=== PATIENT | male | born 1990 | race Caucasian/White ===

== ENCOUNTER 2018-03-31 18:07 | Emergency (ER) | payer OTHER ==
[2018-03-31] MEDS: ONDANSETRON 4 MG INJ IV ×2 (18:57→19:51)
[2018-03-31 19:21] LABS: ADD MAN DIFF? NO
[2018-03-31 19:23] LABS: BASOPHILS % 0.4 % (0.0-2.0); EOSINOPHILS % 0.2 % (0.0-7.0); HEMATOCRIT 37.7 % (42.0-52.0); HEMOGLOBIN 12.9 g/dl (14.0-18.0); LYMPHOCYTES # 2.3 10^3/ul (0.8-2.9); LYMPHOCYTES % 28.2 % (15.0-51.0); MEAN CORPUSCULAR HEMOGLOBIN 30.8 pg (29.0-33.0); MEAN CORPUSCULAR HGB CONC 34.2 g/dl (32.0-37.0); MEAN PLATELET VOLUME 10.7 fl (7.4-10.4); MONOCYTE # 0.4 10^3/ul (0.3-0.9); MONOCYTES % 5.3 % (0.0-11.0); NEUTROPHIL # 5.4 10^3/ul (1.6-7.5); NEUTROPHILS % 65.7 % (39.0-77.0); PLATELET COUNT 344 10^3/UL (140-415); POSITIVE DIFF @See below; RED BLOOD COUNT 4.19 10^6/ul (4.70-6.10); RED CELL DISTRIBUTION WIDTH 13.5 % (11.5-14.5)
[2018-03-31 19:23] LABS: WHITE BLOOD COUNT 8.2 10^3/ul (4.8-10.8)
[2018-03-31 19:47] LABS: ALANINE AMINOTRANSFERASE 34 IU/L (13-69); ALBUMIN 5.1 g/dl (3.3-4.9); ALBUMIN/GLOBULIN RATIO 1.45; ALKALINE PHOSPHATASE 126 IU/L (42-121); ANION GAP 15 (5-13); ASPARTATE AMINO TRANSFERASE 30 IU/L (15-46); BILIRUBIN,INDIRECT 0.8 mg/dl (0-1.1); BILIRUBIN,TOTAL 0.8 mg/dl (0.2-1.3); BLOOD UREA NITROGEN 24 mg/dl (7-20); CALCIUM 10.4 mg/dl (8.4-10.2); CARBON DIOXIDE 24 mmol/L (21-31); CHLORIDE 99 mmol/L (97-110); CREATININE 0.63 mg/dl (0.61-1.24); Estimated GFR > 60 mL/min (>60); GLUCOSE 395 mg/dl (70-220); LIPASE 34 U/L (23-300); POTASSIUM 4.3 mmol/L (3.5-5.1); SODIUM 138 mmol/L (135-144); TOTAL PROTEIN 8.6 g/dl (6.1-8.1)
[2018-03-31] MEDS: morphine 4 MG/ML VIAL IV (19:51)
[2018-03-31] MEDS: SOD CHLORIDE 0.9% 1,000 ML IV (19:51)
[2018-03-31 19:55] LABS: ADD MAN DIFF? NO; BASOPHILS % 0.2 % (0.0-2.0); EOSINOPHILS % 0.1 % (0.0-7.0); HEMATOCRIT 35.8 % (42.0-52.0); HEMOGLOBIN 12.3 g/dl (14.0-18.0); LYMPHOCYTES # 2.4 10^3/ul (0.8-2.9); LYMPHOCYTES % 28.7 % (15.0-51.0); MEAN CORPUSCULAR HEMOGLOBIN 31.1 pg (29.0-33.0); MEAN CORPUSCULAR HGB CONC 34.4 g/dl (32.0-37.0); MEAN CORPUSCULAR VOLUME 90.4 fl (82.0-101.0); MEAN PLATELET VOLUME 10.1 fl (7.4-10.4); MONOCYTE # 0.4 10^3/ul (0.3-0.9); MONOCYTES % 5.3 % (0.0-11.0); NEUTROPHIL # 5.4 10^3/ul (1.6-7.5); NEUTROPHILS % 65.5 % (39.0-77.0); PLATELET COUNT 370 10^3/UL (140-415); RED BLOOD COUNT 3.96 10^6/ul (4.70-6.10); RED CELL DISTRIBUTION WIDTH 13.3 % (11.5-14.5)
[2018-03-31 19:55] LABS: WHITE BLOOD COUNT 8.2 10^3/ul (4.8-10.8)
[2018-03-31] MEDS: ACETAMINOPHEN 325 MG TAB PO (22:16)
== END 2018-03-31 22:29 | disposition home or self-care (01) ==
LOC: E/R 22:29
DX: N50.811 Right testicular pain (principal); N43.3 Hydrocele, unspecified; F17.210 Nicotine dependence, cigarettes, uncomplicated; J45.909 Unspecified asthma, uncomplicated; E11.9 Type 2 diabetes mellitus without complications; I10 Essential (primary) hypertension; F12.10 Cannabis abuse, uncomplicated; Z71.6 Tobacco abuse counseling; Z79.4 Long term (current) use of insulin; Z85.47 Personal history of malignant neoplasm of testis
CPT/HCPCS: 36415; 76870; 80053; 82962; 83690; 85025; 96374; 96375; 99285-25

== ENCOUNTER 2018-08-19 08:39 | Day surgery (SDC) | payer OTHER ==
[~2018-08-19 08:39] MED LIST: LIDOCAINE 2% (SDV) 5 ML INJ; SEVOFLURANE 15 MIN
[2018-08-19] MEDS ORDERED: BUPIVACAINE 0.5% (SDV) 30 ML INJ ×2 (09:56→10:19)
[2018-08-19 10:15] LABS: ADD MAN DIFF? NO
[2018-08-19 10:18] LABS: WHITE BLOOD COUNT 8.9 10^3/ul (4.8-10.8)
[2018-08-19 10:18] LABS: BASOPHILS % 0.3 % (0.0-2.0); EOSINOPHILS # 0.1 10^3/ul (0.0-0.5); EOSINOPHILS % 1.6 % (0.0-7.0); HEMATOCRIT 41.9 % (42.0-52.0); HEMOGLOBIN 13.8 g/dl (14.0-18.0); LYMPHOCYTES # 1.9 10^3/ul (0.8-2.9); MEAN CORPUSCULAR HEMOGLOBIN 31.4 pg (29.0-33.0); MEAN CORPUSCULAR HGB CONC 32.9 g/dl (32.0-37.0); MEAN CORPUSCULAR VOLUME 95.4 fl (82.0-101.0); MEAN PLATELET VOLUME 11.1 fl (7.4-10.4); MONOCYTE # 0.5 10^3/ul (0.3-0.9); MONOCYTES % 5.5 % (0.0-11.0); NEUTROPHIL # 6.3 10^3/ul (1.6-7.5); NEUTROPHILS % 71.3 % (39.0-77.0); PLATELET COUNT 294 10^3/UL (140-415); RED BLOOD COUNT 4.39 10^6/ul (4.70-6.10); RED CELL DISTRIBUTION WIDTH 12.6 % (11.5-14.5)
[2018-08-19] MEDS ORDERED: INSULIN ASPART [NOVOLOG] 3 ML PEN IV (10:30)
[2018-08-19] MEDS ORDERED: ACCU-CHEK XX (10:30)
[2018-08-19 10:36] LABS: ALANINE AMINOTRANSFERASE 13 IU/L (13-69); ALBUMIN 4.2 g/dl (3.3-4.9); ALKALINE PHOSPHATASE 166 IU/L (42-121); ANION GAP 7 (5-13); ASPARTATE AMINO TRANSFERASE 17 IU/L (15-46); BILIRUBIN,INDIRECT 0.2 mg/dl (0-1.1); BILIRUBIN,TOTAL 0.2 mg/dl (0.2-1.3); BLOOD UREA NITROGEN 12 mg/dl (7-20); CALCIUM 9.5 mg/dl (8.4-10.2); CARBON DIOXIDE 27 mmol/L (21-31); CHLORIDE 105 mmol/L (97-110); Estimated GFR > 60 mL/min (>60); GLUCOSE 223 mg/dl (70-220); POTASSIUM 4.7 mmol/L (3.5-5.1); SODIUM 139 mmol/L (135-144)
[2018-08-19 10:37] LABS: CREATININE 0.49 mg/dl (0.61-1.24)
[2018-08-19] MEDS: INSULIN ASPART [NOVOLOG] 3 ML PEN SC (10:39)
[2018-08-19 10:49] LABS: INR 0.88; PT RATIO 0.9
[2018-08-19 10:50] LABS: PARTIAL THROMBOPLASTIN TIME 27.6 Sec (23.0-35.0)
[2018-08-19] MEDS ORDERED: PROPOFOL 20 ML (11:01)
[2018-08-19] MEDS ORDERED: ROCURONIUM 50 MG INJ (11:04)
[2018-08-19] MEDS ORDERED: CEFAZOLIN 1 GM INJ (11:58)
[2018-08-19] MEDS: BUPIVACAINE 0.5% 30 ML VIAL INJ (12:35)
[2018-08-19] MEDS ORDERED: MEPERIDINE 25 MG INJ IV (13:00)
[2018-08-19] MEDS ORDERED: ALBUTEROL 0.083% (NEB) 2.5 MG/3 ML AMP HHN (13:00)
[2018-08-19] MEDS ORDERED: HYDROmorphONE 1 MG/5 ML IV SYRINGE IV ×2 (13:00)
[2018-08-19] MEDS ORDERED: EPHEDrine SULFATE 50 MG/5 ML SYG IV (13:00)
[2018-08-19] MEDS ORDERED: FENTAnyl 50 MCG/ML VIAL IV ×3 (13:00)
[2018-08-19] MEDS ORDERED: DIPHENHYDRAMINE 50 MG INJ IV (13:00)
[2018-08-19] MEDS ORDERED: METOCLOPRAMIDE 10 MG INJ IV (13:00)
[2018-08-19] MEDS ORDERED: hydrALAzine 20 MG INJ IV (13:00)
[2018-08-19] MEDS ORDERED: LABETALOL HCL 20MG INJ IV (13:00)
[2018-08-19] MEDS: HYDROmorphONE 1 MG/5 ML IV SYRINGE IV (13:04)
[2018-08-19] MEDS: ONDANSETRON 4 MG INJ IV (13:05)
[2018-08-19] MEDS: KETOROLAC 30 MG INJ IV (13:46)
== END 2018-08-19 14:17 | disposition home or self-care (01) ==
LOC: SDS 08:39
DX: S62.616A Displaced fracture of proximal phalanx of right little finger, initial encounter for closed fracture (principal); V00.131A Fall from skateboard, initial encounter; Y93.51 Activity, roller skating (inline) and skateboarding; I10 Essential (primary) hypertension; E11.9 Type 2 diabetes mellitus without complications; J45.909 Unspecified asthma, uncomplicated
CPT/HCPCS: 26746; 71045; 73130-RT; 80053; 82962; 85025; 85610; 85730; 93005

== ENCOUNTER 2018-09-16 06:32 | Inpatient (IN) | payer OTHER ==
[2018-09-16] MEDS ORDERED: ONDANSETRON 4 MG INJ IV (07:30)
[2018-09-16] MEDS ORDERED: DOCUSATE SODIUM 100 MG CAP PO (07:30)
[2018-09-16] MEDS ORDERED: VANCOMYCIN IV PER PHARMACY XX (07:30)
[2018-09-16] MEDS ORDERED: ACETAMINOPHEN 325 MG TAB PO (07:30)
[2018-09-16] MEDS ORDERED: NACL 0.9% 3 ML SYG IV (07:30)
[2018-09-16] MEDS ORDERED: BISACODYL (EC) 5 MG TAB PO (07:30)
[2018-09-16 08:42] LABS: ADD MAN DIFF? NO
[2018-09-16 08:44] LABS: WHITE BLOOD COUNT 7.5 10^3/ul (4.8-10.8)
[2018-09-16 08:44] LABS: BASOPHIL # 0.1 10^3/ul (0.0-0.1); BASOPHILS % 0.7 % (0.0-2.0); EOSINOPHILS # 0.2 10^3/ul (0.0-0.5); EOSINOPHILS % 2.4 % (0.0-7.0); HEMATOCRIT 36.5 % (42.0-52.0); LYMPHOCYTES # 1.2 10^3/ul (0.8-2.9); LYMPHOCYTES % 15.4 % (15.0-51.0); MEAN CORPUSCULAR HEMOGLOBIN 31.6 pg (29.0-33.0); MEAN CORPUSCULAR HGB CONC 32.9 g/dl (32.0-37.0); MEAN CORPUSCULAR VOLUME 96.1 fl (82.0-101.0); MONOCYTE # 0.4 10^3/ul (0.3-0.9); MONOCYTES % 5.2 % (0.0-11.0); NEUTROPHIL # 5.7 10^3/ul (1.6-7.5); PLATELET COUNT 256 10^3/UL (140-415); RED CELL DISTRIBUTION WIDTH 13.2 % (11.5-14.5)
[2018-09-16 09:04] LABS: INR 0.85; PROTIME 11.7 Sec (11.9-14.9); PT RATIO 0.9
[2018-09-16 09:05] LABS: ALANINE AMINOTRANSFERASE 16 IU/L (13-69); ALBUMIN 3.6 g/dl (3.3-4.9); ALKALINE PHOSPHATASE 168 IU/L (42-121); ANION GAP 7 (5-13); ASPARTATE AMINO TRANSFERASE 15 IU/L (15-46); BILIRUBIN,INDIRECT 0.6 mg/dl (0-1.1); BILIRUBIN,TOTAL 0.6 mg/dl (0.2-1.3); BLOOD UREA NITROGEN 14 mg/dl (7-20); CALCIUM 8.7 mg/dl (8.4-10.2); CARBON DIOXIDE 23 mmol/L (21-31); CHLORIDE 109 mmol/L (97-110); CREATININE 0.44 mg/dl (0.61-1.24); Estimated GFR > 60 mL/min (>60); GLUCOSE 321 mg/dl (70-220); PARTIAL THROMBOPLASTIN TIME 28.6 Sec (23.0-35.0); POTASSIUM 4.4 mmol/L (3.5-5.1); SODIUM 139 mmol/L (135-144); TOTAL PROTEIN 6.6 g/dl (6.1-8.1)
[2018-09-16] MEDS: HYDROCODONE/APAP (5/325) TAB PO ×2 (09:34→16:50)
[2018-09-16] MEDS: PIPER-TAZO 3.375 GM IV (PMX) 100 ML IVPB ×4 (09:35→23:05)
[2018-09-16] MEDS: SOD CHLORIDE 0.9% 1,000 ML IV ×3 (09:35→21:48)
[2018-09-16] MEDS: VANCOMYCIN HCL 1.5 GM in SOD CHLORIDE 0.9% 250 ML IVPB (11:10)
[2018-09-16] MEDS ORDERED: GLUCOSE GEL 15 GRAM TUBE PO ×2 (13:30)
[2018-09-16] MEDS ORDERED: GLUCAGON 1 MG INJ IM (13:30)
[2018-09-16] MEDS ORDERED: DEXTROSE 50% 50 ML SYRINGE IV ×2 (13:30)
[2018-09-16] MEDS ORDERED: GLUCOSE GEL 15 GRAM TUBE BUCCAL (13:30)
[2018-09-16] MEDS: GABAPENTIN 300 MG CAP PO ×2 (13:47→21:07)
[2018-09-16] MEDS: INSULIN ASPART [NOVOLOG] 3 ML PEN SC ×5 (13:49→21:16)
[2018-09-16] MEDS: VANCOMYCIN 1 GM 250 ML IVPB (19:04)
[2018-09-16] MEDS: OXYCODONE/ACETAMINOPHEN (10/325) TAB PO (21:07)
[2018-09-16] MEDS: INSULIN GLARGINE [LANTus] (100 UNITS/ML) SYG SC (21:13)
[2018-09-16] MEDS ORDERED: VANCOMYCIN HCL 1.25 GM in SOD CHLORIDE 0.9% 250 ML IVPB (23:00)
[2018-09-17] MEDS: ACCU-CHEK XX (02:00)
[2018-09-17] MEDS: INSULIN ASPART [NOVOLOG] 3 ML PEN SC ×8 (03:03→20:39)
[2018-09-17] MEDS: VANCOMYCIN 1 GM 250 ML IVPB ×3 (03:10→15:05)
[2018-09-17 05:57] LABS: ADD MAN DIFF? NO
[2018-09-17] MEDS: PIPER-TAZO 3.375 GM IV (PMX) 100 ML IVPB ×3 (05:57→17:27)
[2018-09-17] MEDS: HYDROCODONE/APAP (5/325) TAB PO ×3 (05:57→20:42)
[2018-09-17 06:16] LABS: BASOPHIL # 0.1 10^3/ul (0.0-0.1); EOSINOPHILS # 0.2 10^3/ul (0.0-0.5); EOSINOPHILS % 3.2 % (0.0-7.0); HEMATOCRIT 34.1 % (42.0-52.0); HEMOGLOBIN 11.4 g/dl (14.0-18.0); LYMPHOCYTES % 31.9 % (15.0-51.0); MEAN CORPUSCULAR HEMOGLOBIN 31.5 pg (29.0-33.0); MEAN CORPUSCULAR HGB CONC 33.4 g/dl (32.0-37.0); MEAN CORPUSCULAR VOLUME 94.2 fl (82.0-101.0); MEAN PLATELET VOLUME 11.1 fl (7.4-10.4); MONOCYTE # 0.5 10^3/ul (0.3-0.9); MONOCYTES % 7.3 % (0.0-11.0); NEUTROPHIL # 3.5 10^3/ul (1.6-7.5); NEUTROPHILS % 56.3 % (39.0-77.0); PLATELET COUNT 259 10^3/UL (140-415); RED BLOOD COUNT 3.62 10^6/ul (4.70-6.10); RED CELL DISTRIBUTION WIDTH 12.8 % (11.5-14.5)
[2018-09-17 06:16] LABS: WHITE BLOOD COUNT 6.3 10^3/ul (4.8-10.8)
[2018-09-17 06:30] LABS: ANION GAP 4 (5-13); BLOOD UREA NITROGEN 16 mg/dl (7-20); CALCIUM 8.3 mg/dl (8.4-10.2); CARBON DIOXIDE 24 mmol/L (21-31); CHLORIDE 111 mmol/L (97-110); CREATININE 0.47 mg/dl (0.61-1.24); Estimated GFR > 60 mL/min (>60); GLUCOSE 159 mg/dl (70-220); MAGNESIUM 1.8 mg/dl (1.7-2.5); PHOSPHORUS 2.8 mg/dl (2.5-4.9); POTASSIUM 3.6 mmol/L (3.5-5.1); SODIUM 139 mmol/L (135-144)
[2018-09-17] MEDS: GABAPENTIN 300 MG CAP PO ×3 (08:30→20:37)
[2018-09-17] MEDS: POTASSIUM CHLORIDE (SR) 20 MEQ TAB PO (09:13)
[2018-09-17] MEDS: MAGNESIUM SULFATE 2 GM/50 ML 50 ML IVPB (09:52)
[2018-09-17] MEDS: SOD CHLORIDE 0.9% 1,000 ML IV (12:06)
[2018-09-17 13:27] LABS: HEMOGLOBIN A1C 10.5 % (0-5.9)
[2018-09-17] MEDS: INSULIN GLARGINE [LANTus] (100 UNITS/ML) SYG SC (20:38)
[2018-09-18] MEDS: VANCOMYCIN 1 GM 250 ML IVPB ×3 (00:42→15:10)
[2018-09-18] MEDS: PIPER-TAZO 3.375 GM IV (PMX) 100 ML IVPB ×4 (01:05→17:29)
[2018-09-18] MEDS: SOD CHLORIDE 0.9% 1,000 ML IV (01:05)
[2018-09-18] MEDS: ACCU-CHEK XX (02:00)
[2018-09-18] MEDS: HYDROCODONE/APAP (5/325) TAB PO ×3 (03:51→22:03)
[2018-09-18 06:54] LABS: ADD MAN DIFF? NO
[2018-09-18 06:59] LABS: WHITE BLOOD COUNT 6.4 10^3/ul (4.8-10.8)
[2018-09-18 06:59] LABS: BASOPHILS % 0.5 % (0.0-2.0); EOSINOPHILS # 0.2 10^3/ul (0.0-0.5); EOSINOPHILS % 2.6 % (0.0-7.0); HEMOGLOBIN 11.6 g/dl (14.0-18.0); LYMPHOCYTES % 31.3 % (15.0-51.0); MEAN CORPUSCULAR HEMOGLOBIN 31.5 pg (29.0-33.0); MEAN CORPUSCULAR HGB CONC 33.1 g/dl (32.0-37.0); MEAN CORPUSCULAR VOLUME 95.1 fl (82.0-101.0); MONOCYTE # 0.5 10^3/ul (0.3-0.9); MONOCYTES % 7.3 % (0.0-11.0); NEUTROPHIL # 3.7 10^3/ul (1.6-7.5); PLATELET COUNT 280 10^3/UL (140-415); RED BLOOD COUNT 3.68 10^6/ul (4.70-6.10); RED CELL DISTRIBUTION WIDTH 12.9 % (11.5-14.5)
[2018-09-18 07:25] LABS: ANION GAP 7 (5-13); BLOOD UREA NITROGEN 15 mg/dl (7-20); CARBON DIOXIDE 25 mmol/L (21-31); CHLORIDE 106 mmol/L (97-110); CREATININE 0.54 mg/dl (0.61-1.24); Estimated GFR > 60 mL/min (>60); GLUCOSE 241 mg/dl (70-220); POTASSIUM 4.2 mmol/L (3.5-5.1); SODIUM 138 mmol/L (135-144)
[2018-09-18] MEDS: INSULIN ASPART [NOVOLOG] 3 ML PEN SC ×7 (08:01→20:56)
[2018-09-18] MEDS: GABAPENTIN 300 MG CAP PO ×3 (08:03→20:52)
[2018-09-18] MEDS: INSULIN GLARGINE [LANTus] (100 UNITS/ML) SYG SC (20:55)
[2018-09-18] MEDS: VANCOMYCIN HCL 1.25 GM in SOD CHLORIDE 0.9% 250 ML IVPB (23:08)
[2018-09-19] MEDS: PIPER-TAZO 3.375 GM IV (PMX) 100 ML IVPB ×4 (02:33→18:00)
[2018-09-19] MEDS: ACCU-CHEK XX ×2 (02:39→03:02)
[2018-09-19] MEDS: INSULIN ASPART [NOVOLOG] 3 ML PEN SC ×8 (03:02→21:15)
[2018-09-19] MEDS: HYDROCODONE/APAP (5/325) TAB PO ×2 (05:47→17:56)
[2018-09-19 05:56] LABS: ADD MAN DIFF? NO
[2018-09-19 06:03] LABS: WHITE BLOOD COUNT 5.8 10^3/ul (4.8-10.8)
[2018-09-19 06:03] LABS: BASOPHIL # 0.1 10^3/ul (0.0-0.1); BASOPHILS % 0.9 % (0.0-2.0); EOSINOPHILS # 0.2 10^3/ul (0.0-0.5); EOSINOPHILS % 3.3 % (0.0-7.0); HEMATOCRIT 38.3 % (42.0-52.0); HEMOGLOBIN 12.6 g/dl (14.0-18.0); LYMPHOCYTES % 34.3 % (15.0-51.0); MEAN CORPUSCULAR HEMOGLOBIN 31.9 pg (29.0-33.0); MEAN CORPUSCULAR HGB CONC 32.9 g/dl (32.0-37.0); MEAN PLATELET VOLUME 12.5 fl (7.4-10.4); MONOCYTE # 0.5 10^3/ul (0.3-0.9); MONOCYTES % 8.6 % (0.0-11.0); NEUTROPHIL # 3.1 10^3/ul (1.6-7.5); NEUTROPHILS % 52.7 % (39.0-77.0); POSITIVE DIFF @See below; RED BLOOD COUNT 3.95 10^6/ul (4.70-6.10)
[2018-09-19 06:07] LABS: PLATELET COUNT 194 10^3/UL (140-415)
[2018-09-19 06:56] LABS: ANION GAP 8 (5-13); BLOOD UREA NITROGEN 21 mg/dl (7-20); CALCIUM 9.2 mg/dl (8.4-10.2); CARBON DIOXIDE 25 mmol/L (21-31); CHLORIDE 107 mmol/L (97-110); CREATININE 0.54 mg/dl (0.61-1.24); Estimated GFR > 60 mL/min (>60); GLUCOSE 231 mg/dl (70-220); POTASSIUM 4.6 mmol/L (3.5-5.1); SODIUM 140 mmol/L (135-144)
[2018-09-19 06:57] LABS: MAGNESIUM 1.9 mg/dl (1.7-2.5)
[2018-09-19] MEDS: VANCOMYCIN HCL 1.25 GM in SOD CHLORIDE 0.9% 250 ML IVPB ×2 (08:59→16:05)
[2018-09-19] MEDS: GABAPENTIN 300 MG CAP PO ×3 (08:59→21:07)
[2018-09-19] MEDS: INSULIN GLARGINE [LANTus] (100 UNITS/ML) SYG SC ×2 (12:51→21:11)
[2018-09-19 23:43] LABS: VANCOMYCIN,TROUGH 13.2 ug/ml (10.0-20.0)
[2018-09-20] MEDS: PIPER-TAZO 3.375 GM IV (PMX) 100 ML IVPB ×5 (00:09→23:48)
[2018-09-20] MEDS: VANCOMYCIN HCL 1.25 GM in SOD CHLORIDE 0.9% 250 ML IVPB ×3 (00:44→15:11)
[2018-09-20] MEDS: ACCU-CHEK XX (02:00)
[2018-09-20] MEDS: HYDROCODONE/APAP (5/325) TAB PO ×2 (07:35→21:42)
[2018-09-20] MEDS: GABAPENTIN 300 MG CAP PO ×3 (08:01→21:18)
[2018-09-20] MEDS: INSULIN GLARGINE [LANTus] (100 UNITS/ML) SYG SC ×2 (08:04→21:24)
[2018-09-20] MEDS: INSULIN ASPART [NOVOLOG] 3 ML PEN SC ×7 (08:05→21:25)
[2018-09-21] MEDS: VANCOMYCIN HCL 1.25 GM in SOD CHLORIDE 0.9% 250 ML IVPB ×3 (00:28→16:32)
[2018-09-21] MEDS: ACCU-CHEK XX (01:55)
[2018-09-21] MEDS: PIPER-TAZO 3.375 GM IV (PMX) 100 ML IVPB ×3 (05:44→18:00)
[2018-09-21] MEDS: GABAPENTIN 300 MG CAP PO ×2 (08:18→12:58)
[2018-09-21] MEDS: INSULIN GLARGINE [LANTus] (100 UNITS/ML) SYG SC (08:30)
[2018-09-21] MEDS: INSULIN ASPART [NOVOLOG] 3 ML PEN SC ×6 (08:31→17:33)
[2018-09-21] MEDS: HYDROCODONE/APAP (5/325) TAB PO (10:52)
== END 2018-09-21 18:40 | disposition home or self-care (01) | DRG 561 ==
LOC: 2NE 09-19 05:26 → PP2 06:32
PROC: 0H9FXZZ Drainage of Right Hand Skin, External Approach (ICD-10-PCS; principal; 2018-09-16)
DX: T84.59XA Infection and inflammatory reaction due to other internal joint prosthesis, initial encounter (principal); L03.011 Cellulitis of right finger; F32.9 Major depressive disorder, single episode, unspecified; E10.9 Type 1 diabetes mellitus without complications; I10 Essential (primary) hypertension
CPT/HCPCS: 80048; 80053; 80202; 82962; 83036; 83735; 84100; 85025; 85610; 85730; 87081

== ENCOUNTER 2018-10-05 21:11 | Inpatient (IN) | payer OTHER ==
[2018-10-06 01:33] LABS: ADD MAN DIFF? NO
[2018-10-06 01:35] LABS: WHITE BLOOD COUNT 7.2 10^3/ul (4.8-10.8)
[2018-10-06 01:35] LABS: BASOPHIL # 0.1 10^3/ul (0.0-0.1); BASOPHILS % 0.7 % (0.0-2.0); EOSINOPHILS # 0.1 10^3/ul (0.0-0.5); HEMATOCRIT 37.4 % (42.0-52.0); HEMOGLOBIN 12.5 g/dl (14.0-18.0); MEAN CORPUSCULAR HEMOGLOBIN 31.6 pg (29.0-33.0); MEAN CORPUSCULAR HGB CONC 33.4 g/dl (32.0-37.0); MEAN CORPUSCULAR VOLUME 94.4 fl (82.0-101.0); MEAN PLATELET VOLUME 11.1 fl (7.4-10.4); MONOCYTE # 0.4 10^3/ul (0.3-0.9); MONOCYTES % 5.9 % (0.0-11.0); NEUTROPHIL # 3.5 10^3/ul (1.6-7.5); NEUTROPHILS % 49.1 % (39.0-77.0); PLATELET COUNT 262 10^3/UL (140-415); RED BLOOD COUNT 3.96 10^6/ul (4.70-6.10)
[2018-10-06] MEDS: PIPER-TAZO 3.375 GM IV (PMX) 100 ML IVPB ×5 (01:39→23:53)
[2018-10-06] MEDS: ONDANSETRON 4 MG INJ IV (01:42)
[2018-10-06] MEDS: morphine 2 MG INJ IV (01:43)
[2018-10-06 01:54] LABS: ALANINE AMINOTRANSFERASE 22 IU/L (13-69); ALBUMIN/GLOBULIN RATIO 1.37; ALKALINE PHOSPHATASE 257 IU/L (42-121); ANION GAP 10 (5-13); ASPARTATE AMINO TRANSFERASE 11 IU/L (15-46); BILIRUBIN,INDIRECT 0.3 mg/dl (0-1.1); BILIRUBIN,TOTAL 0.3 mg/dl (0.2-1.3); BLOOD UREA NITROGEN 17 mg/dl (7-20); CARBON DIOXIDE 25 mmol/L (21-31); CHLORIDE 100 mmol/L (97-110); CREATININE 0.51 mg/dl (0.61-1.24); Estimated GFR > 60 mL/min (>60); GLUCOSE 385 mg/dl (70-220); LIPASE 50 U/L (23-300); SODIUM 135 mmol/L (135-144); TOTAL PROTEIN 6.9 g/dl (6.1-8.1)
[2018-10-06 01:55] LABS: POTASSIUM 4.4 mmol/L (3.5-5.1)
[2018-10-06] MEDS ORDERED: ONDANSETRON 4 MG INJ IV ×2 (05:30→15:30)
[2018-10-06] MEDS: ACETAMINOPHEN 325 MG TAB PO (05:32)
[2018-10-06] MEDS: VANCOMYCIN 1 GM (PMX) 250 ML IVPB (05:33)
[2018-10-06] MEDS ORDERED: VANCOMYCIN IV PER PHARMACY XX (07:30)
[2018-10-06] MEDS ORDERED: ACETAMINOPHEN 325 MG TAB PO (07:30)
[2018-10-06] MEDS ORDERED: GLUCOSE GEL 15 GRAM TUBE PO ×2 (07:30)
[2018-10-06] MEDS ORDERED: GLUCOSE GEL 15 GRAM TUBE BUCCAL (07:30)
[2018-10-06] MEDS ORDERED: NACL 0.9% 3 ML SYG IV (07:30)
[2018-10-06] MEDS ORDERED: GLUCAGON 1 MG INJ IM (07:30)
[2018-10-06] MEDS ORDERED: DEXTROSE 50% 50 ML SYRINGE IV ×2 (07:30)
[2018-10-06] MEDS: SOD CHLORIDE 0.9% 1,000 ML IV ×2 (09:02→17:25)
[2018-10-06] MEDS: INSULIN ASPART [NOVOLOG] 3 ML PEN SC ×5 (09:15→21:37)
[2018-10-06] MEDS: HYDROCODONE/APAP (5/325) TAB PO ×2 (10:40→20:36)
[2018-10-06] MEDS: VANCOMYCIN HCL 1.25 GM in SOD CHLORIDE 0.9% 250 ML IVPB ×2 (12:26→20:19)
[2018-10-06] MEDS: INSULIN GLARGINE [LANTus] (100 UNITS/ML) SYG SC (12:27)
[2018-10-06] MEDS ORDERED: PHENYLephrine (100 MCG/ML) 10ML SYG (15:23)
[2018-10-06] MEDS ORDERED: PROPOFOL 20 ML (15:23)
[2018-10-06] MEDS ORDERED: EPHEDrine 25 MG/5 ML SYG (15:23)
[2018-10-06] MEDS ORDERED: CEFAZOLIN 1 GM INJ (15:23)
[2018-10-06] MEDS ORDERED: MIDAZOLAM 1 MG/ML 2 ML INJ (15:24)
[2018-10-06] MEDS ORDERED: FENTAnyl 50 MCG/ML VIAL (15:24)
[2018-10-06] MEDS: BUPIVACAINE 0.5% (SDV) 30 ML INJ INJ (15:26)
[2018-10-06] MEDS ORDERED: OXYCODONE/ACETAMINOPHEN (5/325) TAB PO (15:30)
[2018-10-06] MEDS ORDERED: METOCLOPRAMIDE 10 MG INJ IV (15:30)
[2018-10-06] MEDS ORDERED: LABETALOL HCL 20MG INJ IV (15:30)
[2018-10-06] MEDS ORDERED: HYDROmorphONE 1 MG/5 ML IV SYRINGE IV ×2 (15:30)
[2018-10-06] MEDS ORDERED: EPHEDrine 25 MG/5 ML SYG IV (15:30)
[2018-10-06] MEDS ORDERED: FENTAnyl 50 MCG/ML VIAL IV ×2 (15:30)
[2018-10-06] MEDS ORDERED: KETOROLAC 30 MG INJ (15:54)
[2018-10-06] MEDS ORDERED: METOCLOPRAMIDE 10 MG INJ (15:54)
[2018-10-06] MEDS ORDERED: ONDANSETRON 4 MG INJ (15:54)
[2018-10-06] MEDS ORDERED: DEXAMETHASONE 4 MG/ML 5 ML INJ (15:54)
[2018-10-06] MEDS: HYDROmorphONE 1 MG/5 ML IV SYRINGE IV (16:39)
[2018-10-06] MEDS: FENTAnyl 50 MCG/ML VIAL IV (16:40)
[2018-10-06] MEDS: DOCUSATE SODIUM 100 MG CAP PO (20:36)
[2018-10-07] MEDS ORDERED: ACCU-CHEK XX ×2 (02:00)
[2018-10-07] MEDS: ACCU-CHEK XX ×2 (02:21→15:15)
[2018-10-07] MEDS: VANCOMYCIN HCL 1.25 GM in SOD CHLORIDE 0.9% 250 ML IVPB ×3 (04:02→20:31)
[2018-10-07] MEDS: HYDROCODONE/APAP (5/325) TAB PO (04:07)
[2018-10-07 05:59] LABS: ADD MAN DIFF? NO
[2018-10-07 06:07] LABS: WHITE BLOOD COUNT 10.1 10^3/ul (4.8-10.8)
[2018-10-07 06:07] LABS: BASOPHILS % 0.1 % (0.0-2.0); HEMATOCRIT 36.2 % (42.0-52.0); HEMOGLOBIN 12.3 g/dl (14.0-18.0); LYMPHOCYTES # 0.8 10^3/ul (0.8-2.9); LYMPHOCYTES % 8.2 % (15.0-51.0); MEAN CORPUSCULAR HEMOGLOBIN 31.6 pg (29.0-33.0); MEAN CORPUSCULAR VOLUME 93.1 fl (82.0-101.0); MEAN PLATELET VOLUME 11.5 fl (7.4-10.4); MONOCYTE # 0.4 10^3/ul (0.3-0.9); MONOCYTES % 3.5 % (0.0-11.0); NEUTROPHIL # 8.8 10^3/ul (1.6-7.5); NEUTROPHILS % 87.8 % (39.0-77.0); PLATELET COUNT 241 10^3/UL (140-415); RED BLOOD COUNT 3.89 10^6/ul (4.70-6.10); RED CELL DISTRIBUTION WIDTH 13.1 % (11.5-14.5)
[2018-10-07 06:30] LABS: ALANINE AMINOTRANSFERASE 21 IU/L (13-69); ALBUMIN 3.4 g/dl (3.3-4.9); ALBUMIN/GLOBULIN RATIO 1.21; ALKALINE PHOSPHATASE 169 IU/L (42-121); ANION GAP 10 (5-13); ASPARTATE AMINO TRANSFERASE 19 IU/L (15-46); BILIRUBIN,INDIRECT 0.5 mg/dl (0-1.1); BILIRUBIN,TOTAL 0.5 mg/dl (0.2-1.3); BLOOD UREA NITROGEN 21 mg/dl (7-20); CALCIUM 8.8 mg/dl (8.4-10.2); CARBON DIOXIDE 20 mmol/L (21-31); CHLORIDE 105 mmol/L (97-110); CREATININE 0.67 mg/dl (0.61-1.24); Estimated GFR > 60 mL/min (>60); GLUCOSE 318 mg/dl (70-220); POTASSIUM 4.5 mmol/L (3.5-5.1); SODIUM 135 mmol/L (135-144); TOTAL PROTEIN 6.2 g/dl (6.1-8.1)
[2018-10-07] MEDS: PIPER-TAZO 3.375 GM IV (PMX) 100 ML IVPB ×3 (07:03→17:27)
[2018-10-07] MEDS: morphine 2 MG INJ IV ×3 (08:08→20:38)
[2018-10-07] MEDS: INSULIN GLARGINE [LANTus] (100 UNITS/ML) SYG SC ×2 (08:09→15:09)
[2018-10-07] MEDS: INSULIN ASPART [NOVOLOG] 3 ML PEN SC ×6 (08:10→20:45)
[2018-10-07] MEDS: ONDANSETRON 4 MG INJ IV ×2 (08:16→20:41)
[2018-10-07] MEDS: SOD CHLORIDE 0.9% 1,000 ML IV ×2 (09:28→20:34)
[2018-10-07 11:30] LABS: VANCOMYCIN,TROUGH 11.6 ug/ml (10.0-20.0)
[2018-10-07] MEDS ORDERED: GABAPENTIN 300 MG CAP (20:33)
[2018-10-07] MEDS: GABAPENTIN 300 MG CAP PO (20:46)
[2018-10-08] MEDS: PIPER-TAZO 3.375 GM IV (PMX) 100 ML IVPB ×4 (00:17→17:31)
[2018-10-08] MEDS: morphine 2 MG INJ IV ×5 (01:25→22:26)
[2018-10-08] MEDS: ACCU-CHEK XX (01:36)
[2018-10-08] MEDS: VANCOMYCIN HCL 1.25 GM in SOD CHLORIDE 0.9% 250 ML IVPB ×3 (04:01→20:49)
[2018-10-08] MEDS: ONDANSETRON 4 MG INJ IV ×2 (08:06→18:09)
[2018-10-08] MEDS: GABAPENTIN 300 MG CAP PO ×2 (08:06→12:18)
[2018-10-08] MEDS: INSULIN GLARGINE [LANTus] (100 UNITS/ML) SYG SC (08:15)
[2018-10-08] MEDS: INSULIN ASPART [NOVOLOG] 3 ML PEN SC ×7 (08:16→20:52)
[2018-10-08] MEDS: SOD CHLORIDE 0.9% 1,000 ML IV (11:28)
[2018-10-08] MEDS: BISACODYL (EC) 5 MG TAB PO (12:18)
[2018-10-09] MEDS: PIPER-TAZO 3.375 GM IV (PMX) 100 ML IVPB ×4 (00:39→17:25)
[2018-10-09] MEDS: ACCU-CHEK XX (02:00)
[2018-10-09] MEDS: VANCOMYCIN HCL 1.25 GM in SOD CHLORIDE 0.9% 250 ML IVPB ×3 (03:33→20:03)
[2018-10-09] MEDS: morphine 2 MG INJ IV ×4 (05:08→21:35)
[2018-10-09] MEDS: ONDANSETRON 4 MG INJ IV ×2 (05:08→21:43)
[2018-10-09] MEDS: INSULIN ASPART [NOVOLOG] 3 ML PEN SC ×7 (08:39→20:04)
[2018-10-09] MEDS: INSULIN GLARGINE [LANTus] (100 UNITS/ML) SYG SC (08:41)
[2018-10-09 11:20] LABS: BLOOD UREA NITROGEN 18 mg/dl (7-20)
[2018-10-09 11:20] LABS: CREATININE 0.74 mg/dl (0.61-1.24)
[2018-10-09 11:24] LABS: VANCOMYCIN,TROUGH 11.7 ug/ml (10.0-20.0)
[2018-10-09] MEDS: HYDROCODONE/APAP (5/325) TAB PO (13:28)
[2018-10-09] MEDS: BISACODYL (EC) 5 MG TAB PO (13:30)
[2018-10-10] MEDS: ACCU-CHEK XX ×2 (00:19→12:26)
[2018-10-10] MEDS: PIPER-TAZO 3.375 GM IV (PMX) 100 ML IVPB ×4 (00:19→17:19)
[2018-10-10] MEDS: morphine 2 MG INJ IV ×2 (03:01→08:29)
[2018-10-10] MEDS: VANCOMYCIN HCL 1.25 GM in SOD CHLORIDE 0.9% 250 ML IVPB ×2 (04:01→12:06)
[2018-10-10] MEDS: INSULIN ASPART [NOVOLOG] 3 ML PEN SC ×7 (08:23→17:19)
[2018-10-10] MEDS: INSULIN GLARGINE [LANTus] (100 UNITS/ML) SYG SC (08:25)
[2018-10-11] MEDS ORDERED: INSULIN GLARGINE [LANTus] (100 UNITS/ML) SYG SC (08:00)
== END 2018-10-10 17:30 | disposition home or self-care (01) | DRG 908 ==
LOC: FTE 21:11 → PP2 10-06 05:18
PROC: 0PBT0ZZ Excision of Right Finger Phalanx, Open Approach (ICD-10-PCS; principal; 2018-10-06 15:17)
PROC: 0PPT04Z Removal of Internal Fixation Device from Right Finger Phalanx, Open Approach (ICD-10-PCS; 2018-10-06 15:17)
DX: T85.79XA Infection and inflammatory reaction due to other internal prosthetic devices, implants and grafts, initial encounter (principal); M86.9 Osteomyelitis, unspecified; L03.011 Cellulitis of right finger; B95.61 Methicillin susceptible Staphylococcus aureus infection as the cause of diseases classified elsewhere; E10.65 Type 1 diabetes mellitus with hyperglycemia; B99.8 Other infectious disease
CPT/HCPCS: 73140; 80053; 80202; 82565; 82962; 83690; 84520; 85025; 87040-91; 87070; 87075; 87102; 88300; 93005